=== PATIENT | male | born 2000 | race Caucasian/White ===

== ENCOUNTER 2021-05-10 22:44 | Emergency (ER) | payer BC ==
[2021-05-11] MEDS ORDERED: HYDROcodone/Acetaminophen 10/325 mg Tablet ONE (00:40)
== END 2021-05-11 01:36 | disposition home or self-care (01) ==
LOC: ERS 22:44
DX: S42.035A Nondisplaced fracture of lateral end of left clavicle, initial encounter for closed fracture (principal); W19.XXXA Unspecified fall, initial encounter